=== PATIENT | female | born 1995 | race Caucasian/White ===

== ENCOUNTER 2016-12-15 21:57 | Emergency (ER) | payer MEDICAID ==
--- NOTE | 2016-12-15 22:26 | EDPHY ---
H & P Stated Complaint: ABD PAIN NAUSEA NO VOMITING, FEELING OFF, FEVERISH Time Seen by Provider: 12/15/16 22:05 HPI/ROS: Chief Complaint: Vaginal discharge, dizziness, feverish HPI: 21-year-old her presenting with some mild left-sided abdominal pain , a greenish vaginal discharge for the last 2 weeks. Has also had some intermittent light dizziness for the last 2 weeks and mild headache. Tonight she felt hot. Pain at worst is about a 2 or 3/10. Is not worsened by ambulation or bumpy car rides. Has had some moderate greenish to greenish vaginal discharge which is similar to prior episodes of bacterial vaginosis. Last menstrual period was 3 weeks ago was normal. Does not believe she is . Does not have a history of sexually transmitted diseases but has had a history of bacterial vaginosis. Sees a sexually active with 1 partner. Some nausea no vomiting. ROS: 10 point Review of Systems is negative except as noted in the HPI. PMH: General anxiety disorder, depression, exercise-induced asthma, chronic sinus disease Medications: Prozac, Wellbutrin, albuterol, Flonase Allergies: Celexa Social History: No smoking, occasional alcohol, occasional marijuana Family History: Father has hypertension hyperlipidemia, mother has hypertension Physical Exam: Gen: Awake, Alert, No Distress HEENT: Nose: no rhinorrhea Eyes: PERRLA, EOMI Mouth: Moist mucosa Neck: Supple, no JVD Chest: nontender, lungs clear to auscultation Heart: S1, S2 normal, no murmur Abd: Soft, mild left upper greater than left lower quadrant tenderness, no adnexal tenderness, no midline pelvic tenderness, no guarding Back: no CVA tenderness, no midline tenderness Ext: no edema, non-tender Skin: no rash Neuro: CN II-XII intact, Sensation grossly intact, Strength 5/5 in bilateral upper and lower extremities - Personal History LMP (Females 10-55): 22-28 Days Ago Current Tetanus/Diphtheria Vaccine: Yes Current Tetanus Diphtheria and Acellular Pertussis (TDAP): Yes Tetanus Vaccine Date: < 10 years - Medical/Surgical History Hx Asthma: Yes Hx Chronic Respiratory Disease: No Hx Diabetes: No Hx Cardiac Disease: No Hx Renal Disease: No Hx Cirrhosis: No Hx Alcoholism: No Hx HIV/AIDS: No Hx Splenectomy or Spleen Trauma: No Other PMH: medical: anxiety, depression, chronic rhinitis, asthma. surgery: appendectomy, wisdom teeth extraction - Social History Smoking Status: Never smoked Constitutional: Initial Vital Signs Temperature (C) 37.1 C 12/15/16 22:00 Heart Rate 89 12/15/16 22:00 Respiratory Rate 18 12/15/16 22:00 Blood Pressure 112/88 H 12/15/16 22:00 O2 Sat (%) 98 12/15/16 22:00 O2 Delivery Mode Room Air Allergies/Adverse Reactions: citalopram hydrobromide [From Celexa] Allergy (Verified 12/15/16 22:03) Home Medications: Medication Instructions Recorded Flonase Unk Dose+ 01/31/14 Albuterol 02/05/16 Wellbutrin Sr 02/05/16 Fluoxetine HCl [Prozac 40 mg] 20 mg PO 12/15/16 metroNIDAZOLE [Flagyl 500 mg (*)] 500 mg PO BID #14 tab 12/15/16 Medical Decision Making ED Course/Re-evaluation: Urinalysis and urine preg are negative. STD testing is not back. Symptoms are consistent with bacterial vaginosis. She has a benign abdominal exam at this time. No clinical findings suggestive of PID. Will discharge with Flagyl, she will call back for her STD results in 2 days if she is not here prior to that. - Data Points Laboratory Results: 12/15/16 12/15/16 12/15/16 22:29 22:29 22:29 Urine Color YELLOW Urine Appearance CLEAR Urine pH 5.0 (5.0-7.5) Ur Specific [place] 1.010 (1.002-1.030) Urine Protein NEGATIVE (NEGATIVE) Urine Ketones NEGATIVE (NEGATIVE) Urine Blood NEGATIVE (NEGATIVE) Urine Nitrate NEGATIVE (NEGATIVE) Urine Bilirubin NEGATIVE (NEGATIVE) Urine Urobilinogen NEGATIVE EU EU (0.2-1.0) Ur Leukocyte Esterase NEGATIVE (NEGATIVE) Urine Glucose NEGATIVE (NEGATIVE) Urine Test NEGATIVE C.trachomatis RNA (TMA) Pending N.gonorrhoeae RNA (TMA) Pending Departure - Departure Disposition: Home, Routine, Self-Care Clinical Impression: Bacterial vaginosis Condition: Good Instructions: Bacterial Vaginosis (ED), Metronidazole (By mouth) Additional Instructions: Please take your full course of antibiotics. Call the hospital in 2 days for your STD test results. Follow up with primary care physician in 3-4 days for re-evaluation. Return emergency depart for increasing pain, fevers, chills, nausea, vomiting, or any other concerns. Referrals: Blossom Martinez MD [Primary Care Provider] - As per Instructions Prescriptions: metroNIDAZOLE [Flagyl 500 mg (*)] 500 mg PO BID #14 tab
[2016-12-15 22:40] LABS: COLOR YELLOW; LEUKOCYTE ESTERASE,URINE NEGATIVE (NEGATIVE); NITRITE,URINE NEGATIVE (NEGATIVE)
[2016-12-15] MEDS ORDERED: metroNIDAZOLE 500 MG TAB PO ONE (23:06)
[2016-12-15 23:14] VITALS: BP 113/76; PULSE 79; RESP 16; TEMP 98.1; O2SAT 97
[2016-12-16 14:25] LABS: CHLAMYDIA AMPLIFICATION GENPRB NEGATIVE (NEGATIVE)
== END 2016-12-15 23:34 | disposition home or self-care (01) ==
DX: N76.0 Acute vaginitis (principal); J45.909 Unspecified asthma, uncomplicated

== ENCOUNTER 2016-12-18 17:30 | Emergency (ER) | payer MEDICAID ==
[2016-12-18 17:38] VITALS: TEMP 98.2
--- NOTE | 2016-12-18 17:41 | EDPHY ---
H & P Stated Complaint: rx flagyl for BV/having ? side effects/trouble thinking/ shaky/nause Time Seen by Provider: 12/18/16 17:40 - Personal History LMP (Females 10-55): 15-21 Days Ago Current Tetanus/Diphtheria Vaccine: Yes Tetanus Vaccine Date: < 10 years - Medical/Surgical History Hx Asthma: Yes Hx Chronic Respiratory Disease: No Hx Diabetes: No Hx Cardiac Disease: No Hx Renal Disease: No Hx Cirrhosis: No Hx Alcoholism: No Hx HIV/AIDS: No Hx Splenectomy or Spleen Trauma: No Other PMH: medical: anxiety, depression, chronic rhinitis, asthma. surgery: appendectomy, wisdom teeth extraction - Social History Smoking Status: Never smoked Constitutional: Initial Vital Signs Temperature (C) 36.8 C 12/18/16 17:36 Heart Rate 79 12/18/16 17:36 Respiratory Rate 20 12/18/16 17:36 Blood Pressure 121/80 H 12/18/16 17:36 O2 Sat (%) 99 12/18/16 17:36 O2 Delivery Mode Room Air Allergies/Adverse Reactions: citalopram hydrobromide [From [employer]!] Allergy (Verified 12/18/16 17:34) Home Medications: Medication Instructions Recorded Flonase Unk Dose+ 01/31/14 Albuterol 02/05/16 Wellbutrin Sr 02/05/16 Fluoxetine HCl [Prozac 40 mg] 20 mg PO 12/15/16 metroNIDAZOLE [Flagyl 500 mg (*)] 500 mg PO BID #14 tab 12/15/16 Medical Decision Making ED Course/Re-evaluation: CHIEF COMPLAINT: Abdominal pain, dizziness. HISTORY OF PRESENT ILLNESS: The patient is a 21-year-old female who presents with dizziness and abdominal pain. These symptoms have been present for the past few days but worsened significantly after she was placed on Flagyl on . She admits associated nausea. She denies vomiting, diarrhea, or other complaints at this time. Her BV symptoms are improving. REVIEW OF SYSTEMS: A 10 point review of systems was performed and is negative with the exception of the elements mentioned in the history of present illness. PHYSICAL EXAM: HR, BP, O2 Sat, RR. Temp noted General Appearance: Alert, well hydrated, appropriate, and non-toxic appearing. Head: Atraumatic without scalp tenderness or obvious injury Eyes: Pupils equal, round, reactive to light and accommodation, EOMI, no trauma , no injection. Ears: Clear bilaterally, no perforation, normal landmarks Nose: Atraumatic, no rhinorrhea, clear. Throat: There is no erythema or exudates, no lesions, normal tonsils, mucus membranes moist. Neck: Supple, 2+ carotid upstroke, nontender, no lymphadenopathy. Respiratory: No retractions, no distress, no wheezes, and no accessory muscle use. Lungs are clear to auscultation bilaterally. Cardiovascular: Regular rate and rhythm, no murmurs, rubs, or gallops. Bilateral carotid, radial, dorsalis pedis, and posterior tibial pulses intact. Good capillary refill all extremities. Gastrointestinal: Abdomen is soft, nontender, non-distended, no masses, no rebound, no guarding, no peritoneal signs. Musculoskeletal: Normal active ROM of all extremities, atraumatic. Neurological: Alert, appropriate, and interactive. The patient has normal DTRs and non-focal cranial nerves, motor, sensory, and cerebellar exam. Skin: No rashes, good turgor, no nodules on palpation. Past medical history: BV, depression, asthma. Past surgical history: Appendectomy. Family history: N/A. Social history: Does not abuse alcohol or drugs. DIFFERENTIAL DIAGNOSIS: The differential diagnosis for the patient's abdominal pain included but was not limited to ovarian cyst, pelvic inflammatory disease, ovarian torsion, urinary tract infection, ectopic , cholecystitis, and appendicitis. MEDICAL DECISION MAKIN-year-old female presents with abdominal pain and dizziness for the past few days. The symptoms worsened when she was placed on Flagyl. On exam she has a benign abdomen and she has had her appendix taken out already. An IV was established and labs ordered. I feel she likely had a gastritis that was worsened with her Flagyl prescription. GI cocktail ordered. I reviewed the patient's laboratory studies. They are negative for acute abnormalities. I will place her on 300mg Clindamycin BID for 7 days. - Data Points Laboratory Results: Laboratory Results 12/18/16 18:29 12/18/16 18:29 12/18/16 12/18/16 12/18/16 18:29 18: 18: WBC 6.15 10^3/uL 10^3/uL (3.80-9.50) RBC 4.79 10^6/uL 10^6/uL (4.18-5.33) Hgb 14.5 g/dL g/dL (12.6-16.3) Hct 41.9 % % (38.0-47.0) MCV 87.5 fL fL (81.5-99.8) MCH 30.3 pg pg (27.9-34.1) MCHC 34.6 g/dL g/dL (32.4-36.7) RDW 11.3 % L % (11.5-15.2) Plt Count 122 10^3/uL L 10^3/uL (150-400) MPV 10.5 fL fL (8.7-11.7) Neut % (Auto) 62.8 % % (39.3-74.2) Lymph % (Auto) 28.5 % % (15.0-45.0) [place] % (Auto) 6.8 % % (4.5-13.0) Eos % (Auto) 1.1 % % (0.6-7.6) Baso % (Auto) 0.3 % % (0.3-1.7) Nucleat RBC Rel Count 0.0 % % (0.0-0.2) Absolute Neuts (auto) 3.86 10^3/uL 10^3/uL (1.70-6.50) Absolute Lymphs (auto) 1.75 10^3/uL 10^3/uL (1.00-3.00) Absolute Monos (auto) 0.42 10^3/uL 10^3/uL (0.30-0.80) Absolute Eos (auto) 0.07 10^3/uL 10^3/uL (0.03-0.40) Absolute Basos (auto) 0.02 10^3/uL 10^3/uL (0.02-0.10) Absolute Nucleated RBC 0.00 10^3/uL 10^3/uL (0-0.01) Immature Gran % 0.5 % % (0.0-1.1) Immature Gran # 0.03 10^3/uL 10^3/uL (0.00-0.10) Sodium 140 mEq/L mEq/L (134-144) Potassium 3.8 mEq/L mEq/L (3.5-5.2) Chloride 105 mEq/L mEq/L (97-110) Carbon Dioxide 21 mEq/l L mEq/l (22-31) Anion Gap 14 mEq/L mEq/L (8-16) BUN 12 mg/dL mg/dL (7-23) Creatinine 0.7 mg/dL mg/dL (0.6-1.0) Estimated GFR > 60 Glucose 82 mg/dL mg/dL (70-100) Calcium 9.7 mg/dL mg/dL (8.5-10.4) Total Bilirubin 0.4 mg/dL mg/dL (0.1-1.4) Conjugated Bilirubin 0.2 mg/dL mg/dL (0.0-0.5) Unconjugated Bilirubin 0.2 mg/dL mg/dL (0.0-1.1) AST 21 IU/L IU/L (14-46) ALT 33 IU/L IU/L (9-52) Alkaline Phosphatase 41 IU/L IU/L (38-126) Total Protein 6.7 g/dL g/dL (6.3-8.2) Albumin 4.4 g/dL g/dL (3.5-5.0) Lipase 151.0 IU/L IU/L (23-300) Beta HCG, Qual NEGATIVE Medications Given: Discontinued Medications Al Hydroxide/Mg Hydroxide (Maalox Susp) 30 ml PO ONCE ONE Stop: 12/18/16 18:04 Last Admin: 12/18/16 18:34 Dose: 30 ml Hyoscyamine Sulfate (Levsin, Hyomax-Sl) 0.25 mg PO ONCE ONE Stop: 12/18/16 18:04 Last Admin: 12/18/16 18:35 Dose: 0.25 mg Sodium Chloride (Ns) 1,000 mls @ 0 mls/hr IV EDNOW ONE; Wide Open PRN Reason: Protocol Stop: 12/18/16 18:04 Last Admin: 12/18/16 18:00 Dose: 1,000 mls Lidocaine (Lidocaine 2% Viscous) 15 ml PO ONCE ONE Stop: 12/18/16 18:04 Last Admin: 12/18/16 18:35 Dose: 15 ml Ondansetron HCl (Zofran) 4 mg IVP EDNOW ONE Stop: 12/18/16 18:04 Last Admin: 12/18/16 18:35 Dose: 4 mg Departure - Departure Disposition: Home, Routine, Self-Care Clinical Impression: Bacterial vaginosis Gastritis Qualifiers: Gastritis type: unspecified gastritis Chronicity: acute Gastritis bleeding: presence of bleeding unspecified Qualified Code(s): K29.00 - Acute gastritis without bleeding Condition: Good Instructions: Gastritis (ED), Bacterial Vaginosis (ED) Additional Instructions: Discontinue use of the Flagyl. Take Clindamycin as prescribed. Follow up with your primary care provider for reevaluation of ongoing symptoms. Return for any serious worsening of condition. Referrals: Blossom Martinez MD [Primary Care Provider] - As per Instructions Report Scribed for: Zelalem Cat Report Scribed by: Sonny Castelan Date of Report: 12/18/16 Time of Report: 17:42
[2016-12-18] MEDS ORDERED: ONDANSETRON 4 MG/2 ML VIAL IVP ONE (18:03)
[2016-12-18] MEDS ORDERED: HYOSCYAMINE SULFATE 0.125 MG TAB PO ONE (18:03)
[2016-12-18] MEDS ORDERED: NS 1,000 ML IV ONE (18:03)
[2016-12-18] MEDS ORDERED: MAG HYDROX/AL HYDROX/SIMETH 30 ML UDCUP PO ONE (18:03)
[2016-12-18] MEDS ORDERED: LIDOCAINE 2% VISCOUS 15 ML UDCUP PO ONE (18:03)
[2016-12-18 18:34] LABS: % IMMATURE GRANULYOCYTES 0.5 % (0.0-1.1); ABSOLUTE IMMATURE GRANULOCYTES 0.03 10^3/uL (0.00-0.10); ADD DIFF? NO; ADD MORPH? NO; ADD SCAN? NO; ATYPICAL LYMPHOCYTE FLAG 30 (0-99); FRAGMENT RBC FLAG 0 (0-99); HEMATOCRIT 41.9 % (38.0-47.0); HEMOGLOBIN 14.5 g/dL (12.6-16.3); LEFT SHIFT FLG 0 (0-99); LIPEMIA HEMOLYSIS FLAG 90 (0-99); MEAN CELL HEMOGLOBIN 30.3 pg (27.9-34.1); MEAN CELL HEMOGLOBIN CONCENTR. 34.6 g/dL (32.4-36.7); MEAN CELL VOLUME 87.5 fL (81.5-99.8); MEAN PLATELET VOLUME 10.5 fL (8.7-11.7); PLATELET CLUMPS FLAG 20 (0-99); PLATELET COUNT 122 10^3/uL (150-400); RED BLOOD CELL COUNT 4.79 10^6/uL (4.18-5.33); RED CELL DISTRIBUTION WIDTH 11.3 % (11.5-15.2)
[2016-12-18 18:48] LABS: ALANINE AMINOTRANSFERASE 33 IU/L (9-52); ALBUMIN 4.4 g/dL (3.5-5.0); ALKALINE PHOSPHATASE 41 IU/L (38-126); ANION GAP 14 mEq/L (8-16); ASPARTATE AMINOTRANSFERASE 21 IU/L (14-46); BILIRUBIN,TOTAL 0.4 mg/dL (0.1-1.4); BILIRUBIN-CONJUGATED 0.2 mg/dL (0.0-0.5); BILIRUBIN-UNCONJUGATED 0.2 mg/dL (0.0-1.1); CALCIUM 9.7 mg/dL (8.5-10.4); CARBON DIOXIDE 21 mEq/l (22-31); CHLORIDE 105 mEq/L (97-110); CREATININE 0.7 mg/dL (0.6-1.0); GLOMERULAR FILTRATION RATE > 60; GLUCOSE 82 mg/dL (70-100); POTASSIUM 3.8 mEq/L (3.5-5.2); SODIUM 140 mEq/L (134-144); TOTAL PROTEIN 6.7 g/dL (6.3-8.2)
[2016-12-18 19:13] VITALS: BP 100/60; PULSE 70; RESP 18; O2SAT 98
== END 2016-12-18 19:13 | disposition home or self-care (01) ==
DX: K29.00 Acute gastritis without bleeding (principal); N76.0 Acute vaginitis; E86.9 Volume depletion, unspecified; J45.909 Unspecified asthma, uncomplicated
CPT/HCPCS: 96374; J2405

== ENCOUNTER 2016-12-31 22:46 | Inpatient (IN) | payer MEDICAID ==
[2016-12-31] MEDS ORDERED: ONDANSETRON 4 MG/2 ML VIAL IVP ONE (23:05)
[2016-12-31] MEDS ORDERED: NS 1,000 ML IV ONE ×2 (23:06→23:36)
[2016-12-31] MEDS ORDERED: KETOROLAC 15 MG/1 ML SDV IVP ONE (23:36)
[2016-12-31 23:41] LABS: % IMMATURE GRANULYOCYTES 0.6 % (0.0-1.1); ABSOLUTE IMMATURE GRANULOCYTES 0.09 10^3/uL (0.00-0.10); ADD DIFF? NO; ADD MORPH? NO; ADD SCAN? NO; ATYPICAL LYMPHOCYTE FLAG 0 (0-99); FRAGMENT RBC FLAG 0 (0-99); HEMATOCRIT 44.1 % (38.0-47.0); LEFT SHIFT FLG 10 (0-99); LIPEMIA HEMOLYSIS FLAG 90 (0-99); MEAN CELL HEMOGLOBIN 29.9 pg (27.9-34.1); MEAN CELL VOLUME 87.8 fL (81.5-99.8); MEAN PLATELET VOLUME 10.9 fL (8.7-11.7); PLATELET CLUMPS FLAG 10 (0-99); PLATELET COUNT 126 10^3/uL (150-400); RED BLOOD CELL COUNT 5.02 10^6/uL (4.18-5.33); RED CELL DISTRIBUTION WIDTH 11.3 % (11.5-15.2)
[2016-12-31 23:48] LABS: ALANINE AMINOTRANSFERASE 34 IU/L (9-52); ALBUMIN 4.6 g/dL (3.5-5.0); ALKALINE PHOSPHATASE 49 IU/L (38-126); ANION GAP 15 mEq/L (8-16); ASPARTATE AMINOTRANSFERASE 25 IU/L (14-46); BILIRUBIN-CONJUGATED 0.2 mg/dL (0.0-0.5); BILIRUBIN-UNCONJUGATED 0.8 mg/dL (0.0-1.1); CALCIUM 9.9 mg/dL (8.5-10.4); CARBON DIOXIDE 21 mEq/l (22-31); CHLORIDE 103 mEq/L (97-110); CREATININE 0.9 mg/dL (0.6-1.0); GLOMERULAR FILTRATION RATE > 60; GLUCOSE 137 mg/dL (70-100); POTASSIUM 3.5 mEq/L (3.5-5.2); SODIUM 139 mEq/L (134-144); TOTAL PROTEIN 7.1 g/dL (6.3-8.2)
--- NOTE | 2017-01-01 00:12 | EDPHY ---
H & P Stated Complaint: Abd Pain, N/V/D, Fever Time Seen by Provider: 12/31/16 23:18 HPI/ROS: Chief Complaint: Abdominal pain, nausea, diarrhea HPI: 21-year-old who is seen by me on the of last month with symptoms consistent with bacterial vaginosis. Had negative gonorrhea and Chlamydia at that time. Patient was initially started on Flagyl with the tolerate this and was switched to clindamycin. She completed her course of antibiotics. Patient states for the last 3 days she has been having worsening dark diarrhea 4 to 5 times a day. Some abdominal cramping. Pain in her back. Some nausea and some vomiting. Some subjective fevers and chills. Patient states that her vaginal discharge has resolved. She has a history of appendicitis status post appendectomy in the past. She is sexually active with a single partner. ROS: 10 point Review of Systems is negative except as noted in the HPI. PMH: Appendectomy, bacterial vaginosis Social History: No smoking, occasional alcohol, no recreational drug use Family History: non-contributory Physical Exam: Gen: Awake, Alert, No Distress HEENT: Nose: no rhinorrhea Eyes: PERRLA, EOMI Mouth: Moist mucosa Neck: Supple, no JVD Chest: nontender, lungs clear to auscultation Heart: S1, S2 normal, no murmur Abd: Soft, moderate left lower quadrant tenderness to palpation, no guarding Back: no CVA tenderness, no midline tenderness Ext: no edema, non-tender Skin: no rash Neuro: CN II-XII intact, Sensation grossly intact, Strength 5/5 in bilateral upper and lower extremities - Personal History LMP (Females 10-55): 1-7 Days Ago Current Tetanus/Diphtheria Vaccine: Yes Current Tetanus Diphtheria and Acellular Pertussis (TDAP): Yes Tetanus Vaccine Date: < 10 years - Medical/Surgical History Hx Asthma: Yes Hx Chronic Respiratory Disease: No Hx Diabetes: No Hx Cardiac Disease: No Hx Renal Disease: No Hx Cirrhosis: No Hx Alcoholism: No Hx HIV/AIDS: No Hx Splenectomy or Spleen Trauma: No Other PMH: medical: anxiety, depression, chronic rhinitis, asthma. surgery: appendectomy, wisdom teeth extraction - Social History Smoking Status: Never smoked Constitutional: Initial Vital Signs Temperature (C) 39.1 C H 12/31/16 22:51 Heart Rate 130 H 08/11/17 22:51 Respiratory Rate 20 12/31/16 22:51 Blood Pressure 95/58 L 12/31/16 22:51 O2 Sat (%) 97 12/31/16 22:51 O2 Delivery Mode Room Air Allergies/Adverse Reactions: citalopram hydrobromide [From Celexa] Allergy (Verified 12/18/16 17:34) metronidazole [From Flagyl] Allergy (Verified 12/31/16 22:54) Home Medications: Medication Instructions Recorded Flonase Unk Dose+ 01/31/14 Albuterol 02/05/16 Wellbutrin Sr 02/05/16 Zoloft 25mg (*) 12/31/16 Medical Decision Making ED Course/Re-evaluation: Patient is feeling improved after fluids and Toradol. Fever is resolved. Patient has no abdominal pain. Minimal left lower quadrant tenderness. Patient is currently complaining mostly of a mild headache her mouth being dry and dry hands. She is asking for fluids. 0300 patient is feeling improved. Abdomen is soft and benign. Patient does not want any further evaluation at this time. Stool tests are pending to evaluate for C diff. She has had no diarrhea here. Patient remains tachycardic and mildly hypotensive. Patient has had 3 L of fluid IV. Is not producing any urine yet. Lactate sent. CT scan of the abdomen pelvis has been ordered. Lactate is normal at 1.3. Patient is feeling well but remains tachycardic. CT scan of the abdomen pelvis shows wall thickening of the descending colon, no diverticuli, consistent with diffuse colitis. Patient's blood pressures improved. Remains mildly tachycardic. Is produced very concentrated urine here. Urinalysis shows a high specific gravity otherwise negative. Patient is getting a 5th L of normal saline. She is otherwise soft and benign abdomen is otherwise well-appearing. No current complaints. - Data Points Laboratory Results: Laboratory Results 12/31/16 23:15 12/31/16 23:15 01/01/17 01/01/17 12/31/16 04:00 03:50 23:15 WBC RBC Hgb Hct MCV MCH MCHC RDW Plt Count MPV Neut % (Auto) Lymph % (Auto) [place] % (Auto) Eos % (Auto) Baso % (Auto) Nucleat RBC Rel Count Absolute Neuts (auto) Absolute Lymphs (auto) Absolute Monos (auto) Absolute Eos (auto) Absolute Basos (auto) Absolute Nucleated RBC Immature Gran % Immature Gran # VBG Lactic Acid 1.3 mmol/L mmol/L (0.7-2.1) Sodium Potassium Chloride Carbon Dioxide Anion Gap BUN Creatinine Estimated GFR Glucose Calcium Total Bilirubin Conjugated Bilirubin Unconjugated Bilirubin AST ALT Alkaline Phosphatase Total Protein Albumin Lipase Beta HCG, Qual NEGATIVE Urine Color YELLOW Urine Appearance CLEAR Urine pH 5.0 (5.0-7.5) Ur Specific [place] 1.035 H (1.002-1.030) Urine Protein NEGATIVE (NEGATIVE) Urine Ketones NEGATIVE (NEGATIVE) Urine Blood NEGATIVE (NEGATIVE) Urine Nitrate NEGATIVE (NEGATIVE) Urine Bilirubin NEGATIVE (NEGATIVE) Urine Urobilinogen NEGATIVE EU EU (0.2-1.0) Ur Leukocyte Esterase NEGATIVE (NEGATIVE) Urine Glucose NEGATIVE (NEGATIVE) 12/31/16 12/31/16 23:15 23:15 WBC 15.08 10^3/uL H 10^3/uL (3.80-9.50) RBC 5.02 10^6/uL 10^6/uL (4.18-5.33) Hgb 15.0 g/dL g/dL (12.6-16.3) Hct 44.1 % % (38.0-47.0) MCV 87.8 fL fL (81.5-99.8) MCH 29.9 pg pg (27.9-34.1) MCHC 34.0 g/dL g/dL (32.4-36.7) RDW 11.3 % L % (11.5-15.2) Plt Count 126 10^3/uL L 10^3/uL (150-400) MPV 10.9 fL fL (8.7-11.7) Neut % (Auto) 89.6 % H % (39.3-74.2) Lymph % (Auto) 3.4 % L % (15.0-45.0) [place] % (Auto) 6.2 % % (4.5-13.0) Eos % (Auto) 0.0 % L % (0.6-7.6) Baso % (Auto) 0.2 % L % (0.3-1.7) Nucleat RBC Rel Count 0.0 % % (0.0-0.2) Absolute Neuts (auto) 13.51 10^3/uL H 10^3/uL (1.70-6.50) Absolute Lymphs (auto) 0.51 10^3/uL L 10^3/uL (1.00-3.00) Absolute Monos (auto) 0.94 10^3/uL H 10^3/uL (0.30-0.80) Absolute Eos (auto) 0.00 10^3/uL L 10^3/uL (0.03-0.40) Absolute Basos (auto) 0.03 10^3/uL 10^3/uL (0.02-0.10) Absolute Nucleated RBC 0.00 10^3/uL 10^3/uL (0-0.01) Immature Gran % 0.6 % % (0.0-1.1) Immature Gran # 0.09 10^3/uL 10^3/uL (0.00-0.10) VBG Lactic Acid Sodium 139 mEq/L mEq/L (134-144) Potassium 3.5 mEq/L mEq/L (3.5-5.2) Chloride 103 mEq/L mEq/L (97-110) Carbon Dioxide 21 mEq/l L mEq/l (22-31) Anion Gap 15 mEq/L mEq/L (8-16) BUN 10 mg/dL mg/dL (7-23) Creatinine 0.9 mg/dL mg/dL (0.6-1.0) Estimated GFR > 60 Glucose 137 mg/dL H mg/dL (70-100) Calcium 9.9 mg/dL mg/dL (8.5-10.4) Total Bilirubin 1.0 mg/dL mg/dL (0.1-1.4) Conjugated Bilirubin 0.2 mg/dL mg/dL (0.0-0.5) Unconjugated Bilirubin 0.8 mg/dL mg/dL (0.0-1.1) AST 25 IU/L IU/L (14-46) ALT 34 IU/L IU/L (9-52) Alkaline Phosphatase 49 IU/L IU/L (38-126) Total Protein 7.1 g/dL g/dL (6.3-8.2) Albumin 4.6 g/dL g/dL (3.5-5.0) Lipase 116.0 IU/L IU/L (23-300) Beta HCG, Qual Urine Color Urine Appearance Urine pH Ur Specific [place] Urine Protein Urine Ketones Urine Blood Urine Nitrate Urine Bilirubin Urine Urobilinogen Ur Leukocyte Esterase Urine Glucose Medications Given: Discontinued Medications Acetaminophen (Tylenol) 1,000 mg PO EDNOW ONE Stop: 01/01/17 01:04 Last Admin: 01/01/17 01:16 Dose: 1,000 mg Acetaminophen (Tylenol) 1,000 mg PO EDNOW ONE Stop: 01/01/17 05:37 Last Admin: 01/01/17 05:38 Dose: 1,000 mg Sodium Chloride (Ns) 1,000 mls @ 0 mls/hr IV EDNOW ONE; Wide Open PRN Reason: Protocol Stop: 12/31/16 23:07 Last Admin: 12/31/16 23:16 Dose: 1,000 mls Sodium Chloride (Ns) 1,000 mls @ 0 mls/hr IV ONCE ONE PRN Reason: Wide Open Stop: 12/31/16 23:37 Last Admin: 12/31/16 23:49 Dose: 1,000 mls Sodium Chloride (Ns) 1,000 mls @ 0 mls/hr IV ONCE ONE; Wide Open PRN Reason: Protocol Stop: 01/01/17 01:05 Last Admin: 01/01/17 01:16 Dose: 1,000 mls Sodium Chloride (Ns) 1,000 mls @ 0 mls/hr IV ONCE ONE PRN Reason: Wide Open Stop: 01/01/17 03:41 Last Admin: 01/01/17 04:15 Dose: 1,000 mls Sodium Chloride (Ns) 1,000 mls @ 0 mls/hr IV ONCE ONE; Wide Open PRN Reason: Protocol Stop: 01/01/17 05:37 Last Admin: 01/01/17 05:37 Dose: 1,000 mls Ketorolac Tromethamine (Toradol) 15 mg IVP EDNOW ONE Stop: 12/31/16 23:37 Last Admin: 12/31/16 23:49 Dose: 15 mg Ondansetron HCl (Zofran) 4 mg IVP EDNOW ONE Stop: 12/31/16 23:06 Last Admin: 12/31/16 23:16 Dose: 4 mg Ondansetron HCl (Zofran) 4 mg IVP EDNOW ONE Stop: 01/01/17 04:15 Last Admin: 01/01/17 04:15 Dose: 4 mg Departure - Departure Disposition: Home, Routine, Self-Care Clinical Impression: Abdominal pain, Fever Condition: Good Instructions: Fever in Adults (ED) Additional Instructions: Call later today for the results of your stool cultures. Return emergency depart for increasing fever or chills, abdominal pain, nausea, vomiting, or any other concerns. Follow up with primary care physician in 2-3 days for further evaluation. Referrals: Blossom Martinez MD [Primary Care Provider] - As per Instructions
[2017-01-01] MEDS ORDERED: ACETAMINOPHEN 500 MG TAB ONE ×2 (01:01→05:32)
[2017-01-01] MEDS ORDERED: ACETAMINOPHEN 500 MG TAB PO ONE ×2 (01:03→05:36)
[2017-01-01] MEDS ORDERED: NS 1,000 ML IV ONE ×4 (01:04→16:18)
[2017-01-01] MEDS ORDERED: ONDANSETRON 4 MG/2 ML VIAL ONE (04:08)
[2017-01-01] MEDS ORDERED: ONDANSETRON 4 MG/2 ML VIAL IVP ONE (04:14)
[2017-01-01] MEDS ORDERED: IOPAMIDOL (ISOVUE-300) 100 ML BTL ONE (04:14)
[2017-01-01 04:52] LABS: COLOR YELLOW; LEUKOCYTE ESTERASE,URINE NEGATIVE (NEGATIVE); NITRITE,URINE NEGATIVE (NEGATIVE)
[2017-01-01] MEDS ORDERED: VANCOMYCIN 125 MG/2.5 ML UDL PO SCH (06:08)
[2017-01-01] MEDS ORDERED: PROMETHAZINE HCL 25 MG/ML INJ IVP PRN (06:30)
[2017-01-01] MEDS: ONDANSETRON 4 MG/2 ML VIAL IVP PRN ×2 (06:47→21:41)
[2017-01-01] MEDS: HYDROmorphONE/DILAUDID 1 MG/ML SYR IVP PRN ×3 (06:47→14:37)
[2017-01-01] MEDS ORDERED: ALBUTEROL 3 ML DEYVIAL IH PRN (06:53)
--- NOTE | 2017-01-01 07:38 | GHP ---
[f rep st] HISTORY AND PHYSICAL DATE OF ADMISSION: 01/01/2017 CHIEF COMPLAINT: Abdominal pain, fever and diarrhea. HISTORY OF PRESENT ILLNESS: The patient is a 21-year-old female who was recently treated for bacterial vaginosis. She presents to the emergency department with abdominal pain, diarrhea and fever. She was initially seen in the emergency department on December 15, complaining of vaginal discharge. She was diagnosed with bacterial vaginosis and treated with Flagyl. She returned to the emergency department several days later, reporting side effects from the Flagyl. At that time, she was changed to oral clindamycin. After completing the course of clindamycin, her vaginal discharge symptoms completely resolved and she actually felt well for a couple of days. She then began having diarrhea , which has increased in frequency. The day prior to arrival, she reports more than 6 stools per day. She describes these as loose and somewhat watery, with foul smell. She denies any hematochezia or melenic stool. She has had no nausea or vomiting. She has had very poor oral intake over the past 24 hours due to abdominal pain. Abdominal pain is left-sided and crampy in nature. She denies chest pain, shortness of breath, cough or other respiratory symptoms. There has been no recent travel or suspicious food exposures. Upon arrival to the emergency department, her temperature was 39.1, blood pressure was 90s over 50s. After several L of normal saline, she dropped her blood pressure to 79/35. She has been persistently tachycardic. A CT scan revealed diffuse colitis. Given her unstable vital signs, she is admitted to the hospital for further management. PAST MEDICAL HISTORY: History of recurrent bacterial vaginosis, asthma, anxiety and depression. PAST SURGICAL HISTORY: Appendectomy in February 2013, wisdom teeth extraction. MEDICATIONS: Please see [facility] for complete updated outpatient medication list. FAMILY HISTORY: Reviewed and noncontributory. SOCIAL HISTORY: The patient lives independently in [place]. Her boyfriend is present with her at the bedside. The patient is a nonsmoker. REVIEW OF SYSTEMS: A 10-point review of systems was performed and is negative except as per HPI. OBJECTIVE: VITAL SIGNS: On arrival to the emergency department, temperature 39.1, blood pressure 95/58, heart rate 130, respiratory rate 20, she is 97% on room air. Current vital signs, temperature is 37.7, blood pressure 105/51, heart rate 120, respiratory rate 20, and she is 94% on room air. GENERAL: The patient is awake, alert, oriented, in no acute distress. HEENT: Head is atraumatic, normocephalic. Pupils equal, round, react to light. Extraocular muscles intact. Oropharynx is clear. Mucous membranes are moist. NECK: Supple. There is no JVD. HEART: Tachycardic, without murmur. LUNGS: Clear to auscultation bilaterally. ABDOMEN: Soft, nondistended. She has diffuse bilateral lower quadrant tenderness to palpation without rebound, rigidity or guarding. There are hypoactive bowel tones. EXTREMITIES: Without cyanosis, clubbing, or edema. NEUROLOGIC: Grossly nonfocal. LABORATORY DATA: CBC reveals a white blood cell count of 15,000, hemoglobin is 15, platelets 126, 89.6% neutrophils, lactic acid is 1.3. Complete metabolic panel remarkable for CO2 of 21, glucose 137, creatinine normal at 0.9, lipase is normal. Beta hCG is negative. Urinalysis is negative for infection, though showed a specific gravity of 1.035. CT abdomen and pelvis showed colon wall thickening diffusely throughout the descending and sigmoid colon, consistent with colitis. ASSESSMENT/PLAN: The patient is a 21-year-old female, who was recently treated for bacterial vaginosis with Flagyl and clindamycin, and now presents to the hospital with fever, abdominal pain, and diarrhea. 1. Sepsis, suspected source is Clostridium difficile colitis. She presented with fever, tachycardia and leukocytosis. Though initially normotensive, she progressed to hypotension with her SBP dropping to the 70's after several liters of NS, meeting criteria for septic shock. At the time of my evaluation, her current blood pressure is 105 systolic after receiving 4.5 L of normal saline in the emergency department. She is currently afebrile. A GI pathogen panel is pending. Will draw blood cultures and initiate empiric oral vancomycin treatment for presumed C difficile. Her history is most consistent with C diff, having taken clindamycin prior to the onset of symptoms, with imaging consistent with colitis. We will give her a clear liquid diet. Continue IV fluids, as she has had poor urine output and was quite volume depleted on arrival. Overall, her hemodynamics have improved. Continue close monitoring in the step down unit. 2. Depression and anxiety. We will continue her outpatient medications once her medication reconciliation is completed. 3. Asthma. This is stable without any evidence of acute exacerbation. We will provide p.r.n. albuterol nebs. 4. Code status. Patient is full code. 5. Deep venous thrombosis prophylaxis. Patient is low risk. We will place SCDs and recommend frequent ambulation. 6. Disposition. Patient is admitted to inpatient status. Will likely require greater than 48 hours hospitalization for ongoing management of her sepsis likely secondary to sepsis and associated colitis. /[id number]/MODL MTDD
[2017-01-01 08:13] LABS: INR 1.55 (0.83-1.16); PROTIME(PATIENT) 18.6 SEC (12.0-15.0)
[2017-01-01 08:14] LABS: APTT 32.6 SEC (23.0-38.0)
[2017-01-01 08:17] LABS: BILIRUBIN,TOTAL 0.6 mg/dL (0.1-1.4)
[2017-01-01 08:37] LABS: PROCALCITONIN 2.11 ng/mL (0.02-0.10)
[2017-01-01] MEDS ORDERED: FLUTICASONE NASAL 120 SPRAYS/16 GM MDI EACHNARE PRN (10:45)
[2017-01-01] MEDS ORDERED: ALBUTEROL 200 PUFFS/18 GM MDI IH PRN (10:45)
--- NOTE | 2017-01-01 11:13 | HOSPPROG ---
Hospitalist Progress Note Assessment/Plan: DIAGNOSES: -Acute severe sepsis -C difficile colitis Patient does have acute C difficile colitis. Is concerned she remains tachycardic at this stage of things. Try and correct that more. On her abdominal exam right now I do not think there is dramatic distention but she does have some colonic distension. She is still having bowel sounds and bowel movement. She is not vomiting. This is a fairly severe infection and she is at some risk of complications and will need close watching so will continue in ICU at this time. PLANS: -At this time will increase aggressiveness of fluid resuscitation, will use NICOM to guide this at present -Will increase her dose of vancomycin 250 mg 4 times daily -Will not add Flagyl at this time as he had so much side effects but if she does not improve fairly quickly may need to add some IV Flagyl -I have ordered a recheck chemistry panel to look at acid-base status and renal function at this time will continue follow that closely -Contact isolation -DVT prophylaxis SUBJECTIVE: still having a lot of abdominal cramping and watery stools Feels lightheaded and dehydrated No shortness of breath No fever symptoms Last bowel movement 1 hour ago watery OBJECTIVE Vitals reviewed: remains tachycardic 119 at this point, has a good mean arterial pressure, still febrile Van Loader, my review: sinus tachycardia Exam: alert oriented skin warm dry color ok no jaundice or mottling Good distal capillary refill resps not labored lungs clear BSs heart regular abd soft mildly distended, some diffuse tenderness without guarding or rebound , bowel sounds present limbs warm, no edema iv site ok laboratory data: Her C diff test is positive There is not at this point repeat chemistry or CBC Cultures of Blood are negative so far I reviewed her CT abdomen images and they do show diffuse colonic thickening Objective: Vital Signs Temp Pulse Resp BP Pulse Ox 37.4 C 115 H 24 H 94/47 L 95 01/01/17 08:00 01/01/17 08:00 01/01/17 08:00 01/01/17 08:00 01/01/17 08:00 PT 18.6 SEC (12.0-15.0) H 01/01/17 07:45 INR 1.55 (0.83-1.16) H 01/01/17 07:45 ICD10 Worksheet Patient Problems: Problems Problem Status Onset Abdominal pain Acute Fever Acute Appendicitis Acute
[2017-01-01] MEDS: SERTRALINE HCL 50 MG TAB PO SCH (11:38)
[2017-01-01] MEDS: VANCOMYCIN 125 MG/2.5 ML UDL PO SCH ×3 (11:40→21:34)
[2017-01-01] MEDS: buPROPion SR 150 MG TAB PO SCH (11:45)
[2017-01-01 11:47] LABS: ANION GAP 9 mEq/L (8-16); CALCIUM 6.9 mg/dL (8.5-10.4); CARBON DIOXIDE 17 mEq/l (22-31); CHLORIDE 110 mEq/L (97-110); CREATININE 0.7 mg/dL (0.6-1.0); GLOMERULAR FILTRATION RATE > 60; GLUCOSE 102 mg/dL (70-100); POTASSIUM 4.3 mEq/L (3.5-5.2); SODIUM 136 mEq/L (134-144)
[2017-01-01] MEDS: ACETAMINOPHEN 325 MG TAB PO PRN ×2 (14:41→21:49)
[2017-01-01 15:50] LABS: HEMATOCRIT 35.2 % (38.0-47.0); HEMOGLOBIN 11.7 g/dL (12.6-16.3)
--- NOTE | 2017-01-01 15:55 | GCON ---
[f rep st] CONSULTATION DATE OF CONSULTATION: 01/01/2017 REFERRING PHYSICIAN: Fam Washington MD PULMONARY/CRITICAL CARE CONSULTATION: REASON FOR REFERRAL: Evaluation and management of tachycardia and colitis. HISTORY: Ms George is a 21-year-old woman who was recently treated for bacterial vagin osis with Flagyl on December 15. She was then changed to oral clindamycin due to side effects attribu lina to the Flagyl. Her symptoms of bacterial vaginosis resolved, but then she started having diarrh ea with increased frequency. She had about 6 stools yesterday, and described them as watery with fo ul smell. She had poor oral intake for a day or so before coming in due to crampy abdominal pain an d nausea. She presented to the emergency department with these symptoms and was found to be febrile , hypotensive, and tachycardic. She was admitted to the ICU for colitis. She reports now that she is feeling a bit better with improved pain control and also with less nausea. She has been able to start to take some p.o. liquids. She is still having frequent watery bowel movements. PAST MEDICAL HISTORY: 1. History of recurrent bacterial vaginosis. 2. Asthma. 3. Anxiety and depression. MEDICATIONS: Include: Flonase, Wellbutrin, ProAir, Zoloft. ALLERGIES: Citalopram and metronidazole. 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 She lives independently in [place]. S he does not smoke and denies excessive alcohol. REVIEW OF SYSTEMS: A 10-point review of systems adds nothing to the history of present illness. PHYSICAL EXAMINATION: GENERAL: The patient is awake, alert, in no acute distress. VITAL SIGNS: B lood pressure is 87/40, with a heart rate of 117. VITAL SIGNS: She is currently afebrile, but had a temperature of 39.1 at admission 12 hours ago. Oxygen saturations are 95% on room air. HEENT: N ormocephalic and atraumatic. No icterus. NECK: No JVD. Trachea is midline. CHEST: Clear to aus cultation. CARDIAC: Regular tachycardia without murmur. ABDOMEN: Soft. There is diffuse mild te nderness. Bowel sounds are hyperactive. EXTREMITIES: No clubbing, cyanosis or edema. NEURO: The patient is awake, alert. She has no gross sensory or motor deficits. LABORATORY DATA: White blood count is 15.1. A chemistry group shows the carbon dioxide level of 17 , down from 21. Glucose is 102. Calcium is 6.9 with an INR 1.5. A blood gas shows a lactate of 1. 3. A CT scan of the abdomen shows left-sided descending and sigmoid colitis. Images reviewed. A C dif f test is positive. ASSESSMENT: 1. Clostridium difficile colitis. This is moderate to severe in severity with signs of systemic in flammatory response, including hypotension, tachycardia, fever now with an elevated white blood coun t. She has been started on vancomycin and has been given IV fluids, although she still remains some what tachycardic and hypotensive. An icon fluid challenge was done and she was nonresponsive. 2. Severe sepsis. As above, the patient has symptoms of hypotension, tachycardia, fever, elevated white blood count, and a known infectious source. However, her lactate at presentation was normal. However, her bicarb has fallen so far during her hospitalization. 3. Hypocalcemia. This was demonstrated on a serum calcium. RECOMMENDATIONS: 1. Fluid bolus despite the negative fluid challenge on NICOM. 2. Recheck a lactate. 3. Check an ionized calcium. /[id number]/MODL
[2017-01-01] MEDS ORDERED: NALOXONE HCL 0.4 MG/ML INJ IVP PRN (15:57)
[2017-01-01] MEDS ORDERED: HYDROmorphONE/DILAUDID 6 MG/30 ML PCA IV ONE (15:59)
[2017-01-01 16:00] LABS: BASE EXCESS -5.4 mEq/L (-2.5-2.5); BICARBONATE 18 mEq/L (22-26); IONIZED CALCIUM 1.07 MMOL/L (1.12-1.30); MEASURED OXYGEN SATURATION 95 % (92-95); PCO2 32 mmHg (34-38); PO2 79 mmHg (65-75); TCO2 19 mEq/L (23-27)
[2017-01-01 16:03] LABS: O2 CONCENTRATIION ROOM AIR % (0-100); P/F RATIO 0 RATIO
[2017-01-01 16:05] LABS: ANION GAP 9 mEq/L (8-16); CALCIUM 6.9 mg/dL (8.5-10.4); CARBON DIOXIDE 18 mEq/l (22-31); CHLORIDE 109 mEq/L (97-110); CREATININE 0.7 mg/dL (0.6-1.0); GLOMERULAR FILTRATION RATE > 60; GLUCOSE 94 mg/dL (70-100); POTASSIUM 3.5 mEq/L (3.5-5.2); SODIUM 136 mEq/L (134-144)
[2017-01-01] MEDS ORDERED: CALCIUM CHLORIDE 1 GM/10 ML INJ IV ONE (16:08)
[2017-01-01] MEDS: HYDROmorphONE/DILAUDID 6 MG/30 ML PCA IV PRN (16:10)
[2017-01-01] MEDS ORDERED: CALCIUM GLUCONATE 1 GM/50 ML IV ONE (16:45)
[2017-01-01 20:23] LABS: HEMATOCRIT 34.7 % (38.0-47.0); HEMOGLOBIN 11.7 g/dL (12.6-16.3)
[2017-01-02] MEDS: ACETAMINOPHEN 325 MG TAB PO PRN ×2 (01:28→20:13)
[2017-01-02] MEDS: HYDROmorphONE/DILAUDID 6 MG/30 ML PCA IV PRN (04:39)
[2017-01-02 06:17] LABS: ADD MORPH? NO; ADD SCAN? YES; ATYPICAL LYMPHOCYTE FLAG 0 (0-99); FRAGMENT RBC FLAG 0 (0-99); HEMATOCRIT 37.3 % (38.0-47.0); HEMOGLOBIN 12.4 g/dL (12.6-16.3); LIPEMIA HEMOLYSIS FLAG 80 (0-99); MEAN CELL HEMOGLOBIN 30.5 pg (27.9-34.1); MEAN CELL HEMOGLOBIN CONCENTR. 33.2 g/dL (32.4-36.7); MEAN CELL VOLUME 91.9 fL (81.5-99.8); MEAN PLATELET VOLUME 10.6 fL (8.7-11.7); PLATELET CLUMPS FLAG 0 (0-99); PLATELET COUNT 85 10^3/uL (150-400); RED BLOOD CELL COUNT 4.06 10^6/uL (4.18-5.33); RED CELL DISTRIBUTION WIDTH 11.8 % (11.5-15.2)
[2017-01-02 06:18] LABS: LEFT SHIFT FLG 160 (0-99)
[2017-01-02 06:36] LABS: ADD DIFF? YES; SCAN POSITIVE
[2017-01-02 06:38] LABS: PLATELET ESTIMATE DECREASED (ADEQ)
[2017-01-02 06:44] LABS: ALANINE AMINOTRANSFERASE 24 IU/L (9-52); ALBUMIN 2.4 g/dL (3.5-5.0); ALKALINE PHOSPHATASE 32 IU/L (38-126); ANION GAP 8 mEq/L (8-16); ASPARTATE AMINOTRANSFERASE 21 IU/L (14-46); BILIRUBIN,TOTAL 0.4 mg/dL (0.1-1.4); BILIRUBIN-CONJUGATED 0.2 mg/dL (0.0-0.5); BILIRUBIN-UNCONJUGATED 0.2 mg/dL (0.0-1.1); CALCIUM 7.8 mg/dL (8.5-10.4); CARBON DIOXIDE 19 mEq/l (22-31); CHLORIDE 107 mEq/L (97-110); CREATININE 0.7 mg/dL (0.6-1.0); GLOMERULAR FILTRATION RATE > 60; GLUCOSE 108 mg/dL (70-100); POTASSIUM 3.6 mEq/L (3.5-5.2); SODIUM 134 mEq/L (134-144); TOTAL PROTEIN 4.7 g/dL (6.3-8.2)
[2017-01-02] MEDS: VANCOMYCIN 125 MG/2.5 ML UDL PO SCH ×4 (07:06→20:08)
[2017-01-02] MEDS: NS W/ 20 KCl/L 1,000 ML IV SCH ×2 (07:53→20:07)
[2017-01-02] MEDS: SERTRALINE HCL 50 MG TAB PO SCH (09:43)
[2017-01-02] MEDS: buPROPion SR 150 MG TAB PO SCH (09:44)
[2017-01-02] MEDS: oxyCODONE IR 5 MG TAB PO PRN (11:06)
--- NOTE | 2017-01-02 11:08 | PDINTPN ---
Needle Bar Molder Progress Note Assessment/Plan: Assessment: C.diff colitis: Severe. Rebound tenderness on left, but has BS and having flatus /BMs. On PO Vancomycin. Sepsis: Improved, with better BP. HR down slightly but still high. Metabolic acidosis slightly improved. Anemia: Stable overnight. Stools no longer black. Plan: Add IV Flagyl per ID. Liquid diet as tolerated. Increase AUDIO/VIDEO TECHNICIAN dilaudid, start PO narcotic. OK to transfer to med-surg. 01/02/17 11:41 Subjective: Abdominal pain improved, but still quite severe. Less frequent BMs, less urgency. Poor appetite. Has cervical/occipital INMAN. Objective: Vital Signs Temp Pulse Resp BP Pulse Ox 37.2 C 108 H 20 107/67 97 01/02/17 08:00 01/02/17 09:00 01/02/17 09:00 01/02/17 09:00 01/02/17 09:00 Laboratory Results 01/02/17 06:00 01/02/17 06:00 01/01/17 01/02/17 01/03/17 05:59 05:59 05:59 Intake Total 4895 Output Total 150 Balance 4745 PT 18.6 SEC (12.0-15.0) H 01/01/17 07:45 INR 1.55 (0.83-1.16) H 01/01/17 07:45 Physical Exam - Physical Exam General Appearance: alert, mild distress EENT: photophobia Neck: full range of motion, normal inspection Respiratory: chest non-tender, lungs clear Cardiac/Chest: tachycardia, No edema Abdomen: normal bowel sounds, soft, No non-tender (rebound tenderness left) Skin: normal color, warm/dry Extremities: normal inspection Neuro/Psych: alert, motor weakness, sensory deficit, No normal mood/affect ( fatigued, frustrated, tearful) ICD10 Worksheet Patient Problems: Problems Problem Status Onset Abdominal pain Acute Fever Acute Appendicitis Acute
--- NOTE | 2017-01-02 12:06 | HOSPPROG ---
Hospitalist Progress Note Assessment/Plan: DIAGNOSES: -Acute severe sepsis -C difficile colitis Patient does have acute C difficile colitis. As remains tachycardic and requiring narcotic for pain, I feel she is still quite ill but she is having bowel function, does not renal insufficiency and her blood pressure remains good despite the tachycardia. her abdominal examination does have some distention but overall remains benign. I have reviewed her case in detail today with Dr. Curt Lebron and Mercedes Chong Also seen on multidisciplinary rounds PLANS: - continue IV fluid resuscitation -Continue vancomycin 250 mg 4 times daily -ID consult -Contact isolation -DVT prophylaxis SUBJECTIVE: still having a lot of abdominal cramping and watery stools though stools are less frequent today Feels lightheaded and dehydrated No shortness of breath No fever symptoms OBJECTIVE Vitals reviewed: remains tachycardic 105-117 at this point, has a good mean arterial pressure, less febrile today Meal Cooker, my review: sinus tachycardia Exam: alert oriented skin warm dry color ok no jaundice or mottling Good distal capillary refill resps not labored lungs clear BSs heart regular abd soft mildly distended, some diffuse tenderness without guarding or rebound , bowel sounds present limbs warm, no edema iv site ok laboratory data: Her C diff test is positive I reviewed her CT abdomen images and they do show diffuse colonic thickening l Objective: Vital Signs Temp Pulse Resp BP Pulse Ox 37.2 C 108 H 20 107/67 97 01/02/17 08:00 01/02/17 09:00 01/02/17 09:00 01/02/17 09:00 01/02/17 09:00 Laboratory Results 01/02/17 06:00 01/02/17 06:00 01/01/17 01/02/17 01/03/17 06:59 06:59 06:59 Intake Total 4895 Output Total 150 Balance 4745 PT 18.6 SEC (12.0-15.0) H 01/01/17 07:45 INR 1.55 (0.83-1.16) H 01/01/17 07:45 ICD10 Worksheet Patient Problems: Problems Problem Status Onset Abdominal pain Acute Fever Acute Appendicitis Acute
--- NOTE | 2017-01-02 12:17 | GCON ---
[f rep st] CONSULTATION INFECTIOUS DISEASE CONSULTATION DATE OF CONSULTATION: 01/02/2017 REFERRING PHYSICIAN: Fam Washington MD REASON FOR CONSULTATION: Sepsis secondary to C difficile. Query additional antibiotic management. HISTORY OF PRESENT ILLNESS: This is a 21-year-old healthy woman who presented to the emergency room on January 01 with abdominal pain, watery diarrhea, and fever. On presentation, she was found to be febrile to 39, hypotensive and tachycardic to 130. Workup was begun with a CT scan and a stool study, which subsequently demonstrated C difficile. Providers were suspicious of this etiology, as the patient reports approximately 2 weeks ago presenting to Urgent Care with crampy abdominal pain and was subsequently diagnosed with bacterial vaginosis. She was initially given p.o. Flagyl which she did not tolerate well , but then was changed to p.o. clindamycin which preceded the onset of the above symptoms. Her diarrhea was too frequent episodes to count. She was having incontinence due to urgency. It was black in nature, but she recently had Pepto. No bright red blood per rectum. She also had severe abdominal pain most prominent in the left lower quadrant. She felt a significant decreased p.o. intake greater than her baseline anorexia, which she relates to chronic therapy with SSRIs. Since admission, the patient has been given significant IV fluids and p.o. vancomycin, and she reports 50% improvement in abdominal pain and diarrhea since admission. She still is somewhat tearful regarding the persistent pain in the left lower quadrant. In addition, she describes headache most prominent in the back of her neck and over her eyes. She has some sore throat and nasal congestion, but she states this is likely due to lack of use of Flonase since admission to the hospital. PAST MEDICAL HISTORY: Recurrent bacterial vaginosis (negative GC chlamydia ), depression and asthma/seasonal allergies. PAST SURGICAL HISTORY: Appendectomy and wisdom teeth extraction. MEDICATIONS: Vancomycin 250 mg p.o. four times daily, Tylenol, albuterol, Wellbutrin 150 mg daily, Dilaudid as PAIN COORDINATOR, Narcan, Zofran, Phenergan and Zoloft 25 mg daily. ALLERGIES: To citalopram. 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 She is from [place]. No recent travel. Nonsmoker. Did not review sexual history due to patient's current feeling poorly. REVIEW OF SYSTEMS: A complete 10-point review of systems was performed and is negative, except as mentioned in the HPI. PHYSICAL EXAM: INITIAL VITAL SIGNS: Heart rate 130, blood pressure 90/50. Today, blood pressure 107/67, heart rate is 108. Initial temperature 39.1, today 37.2. GENERAL: This is a young woman lying in bed, in mild distress secondary to abdominal pain. HEENT: Pupils are reactive bilaterally. Extraocular muscles are intact. Oropharynx: She has black discoloration of her tongue due to Pepto-Bismol and dry mucous membranes. Dentition is good. NECK: Supple, without meningismus. NEUROLOGICAL: She was moving all 4 extremities equally. CARDIOVASCULAR: Tachycardic, regular rate. CHEST: Clear to auscultation bilaterally, except some cracked scattered crackles in the bases. ABDOMEN: Hyperactive bowel sounds. Diffuse discomfort to palpation with peritoneal signs in the left lower quadrant. EXTREMITIES: No clubbing, cyanosis, or edema. SKIN: No rash was noted. : No Gee. LABORATORY: White count 10.3 down from 15, hematocrit 37, platelets of 85, 69% neutrophils, 15% bands, 10% monocytes. Creatinine 0.7. AST 21, ALT 24. Albumin 2.4. Procalcitonin was 2.11. Beta HCG was negative. Urinalysis was negative. Blood cultures from 01/01/2017 are no growth to date. ASSESSMENT AND PLAN: This is a 21-year-old woman with minimal past medical history, who has had recurrent bacterial vaginosis and was recently treated with systemic clindamycin. She subsequently developed severe abdominal pain, watery diarrhea and was subsequently found to have Clostridium difficile. On presentation to the emergency room, the patient had evidence of severe Clostridium difficile with Sepsis reflected by hypotension, tachycardia, bandemia and subsequent thrombocytopenia. In addition, fairly severe inflammation of her sigmoid colon and descending colon on CT scan. She was admitted to the step-down unit, given aggressive IV fluids and started on p.o. vancomycin. Although vital signs and abdominal pain have improved patient continues to have tachycardia and severe abdominal pain c/w severe disease due to C.diff. Therefore, would add IV metronidazole 500mg IV q8hr for a day to two to help facilitate improvement, as the patient likely has some decreased bowel motility which may inhibit oral vancomycin delivery. Will continue to follow the patient on a daily basis while hospitalized and will arrange for followup for ongoing therapy of C difficile and management of recurrent bacterial vaginosis as an outpatient. Thank you for this consultation. We will continue to follow on a daily basis. /[id number]/MODL MTDD
[2017-01-02] MEDS: ONDANSETRON 4 MG/2 ML VIAL IVP PRN (16:29)
[2017-01-03] MEDS: oxyCODONE IR 5 MG TAB PO PRN ×3 (01:28→20:10)
[2017-01-03 05:10] LABS: ALBUMIN 2.3 g/dL (3.5-5.0); BILIRUBIN,TOTAL 0.2 mg/dL (0.1-1.4); BILIRUBIN-CONJUGATED 0.1 mg/dL (0.0-0.5); BILIRUBIN-UNCONJUGATED 0.1 mg/dL (0.0-1.1); TOTAL PROTEIN 4.4 g/dL (6.3-8.2)
[2017-01-03] MEDS: ONDANSETRON 4 MG/2 ML VIAL IVP PRN ×2 (05:23→08:52)
[2017-01-03] MEDS: VANCOMYCIN 125 MG/2.5 ML UDL PO SCH ×4 (06:04→20:11)
[2017-01-03] MEDS: buPROPion SR 150 MG TAB PO SCH (10:00)
[2017-01-03] MEDS: SERTRALINE HCL 50 MG TAB PO SCH (10:00)
[2017-01-03] MEDS: ACETAMINOPHEN 325 MG TAB PO PRN ×3 (10:00→21:41)
[2017-01-03] MEDS: NS W/ 20 KCl/L 1,000 ML IV SCH (10:14)
--- NOTE | 2017-01-03 11:06 | PCMIDPN ---
Assessment/Plan: Assessment: C diff colitis. Clinically greatly improved on oral vancomycin and IV metronidazole. She is wanting to decrease her pain medications. Her abdominal exam is remarkably better. Still with diarrhea but decreased in amount and frequency. Plan: 1. Continue oral vancomycin and IV Flagyl. 2. Transition from NEEDLE MAKER to oral pain medications. 3. Follow clinical course. 01/03/17 11:01 Subjective: Patient is feeling hot and clammy. No significant continuing abdominal pain. Still has diarrhea although lessened. Major complaint is headache. Objective: P.o. vancomycin # 2 IV metronidazole # 1 Vital Signs Temp Pulse Resp BP Pulse Ox 37.6 C 103 H 14 112/65 96 01/03/17 07:06 01/03/17 07:06 01/03/17 07:06 01/03/17 07:06 01/03/17 07:06 Laboratory Results 01/02/17 06:00 01/02/17 06:00 01/02/17 01/03/17 01/04/17 05:59 05:59 05:59 Intake Total 4895 4437.2 Output Total 150 200 Balance 4745 4437.2 -200 - Physical Exam General Appearance: WD/WN, alert, no apparent distress, non-toxic Respiratory: lungs clear, normal breath sounds, No respiratory distress Cardiac/Chest: regular rate, rhythm, tachycardia Extremities: non-tender, normal inspection Abdomen: soft, No non-tender (Mildly tender to deep palpation), No mass Skin: normal color, warm/dry, No rash Neuro/Psych: alert, normal mood/affect, oriented x 3 ICD10 Worksheet Patient Problems: Problems Problem Status Onset Abdominal pain Acute Fever Acute Appendicitis Acute
[2017-01-03] MEDS: KETOROLAC 30 MG/1 ML SDV IVP PRN ×3 (11:24→23:14)
--- NOTE | 2017-01-03 13:42 | HOSPPROG ---
Hospitalist Progress Note Assessment/Plan: * severe C diff colitis * Continue Flagyl and oral vancomycin * Advance diet as tolerated * Improving overall * headache * May be due to narcotics * Will add anti-inflammatory and try to reduce IV narcotics Subjective: Complaining of headache. Minimal abdominal pain. Diarrhea has improved Objective: Vital Signs Temp Pulse Resp BP Pulse Ox 37.2 C 88 18 111/67 97 01/03/17 11:15 01/03/17 11:15 01/03/17 11:15 01/03/17 11:15 01/03/17 11:15 Laboratory Results 01/02/17 06:00 01/02/17 06:00 01/02/17 01/03/17 01/04/17 05:59 05:59 05:59 Intake Total 4895 4437.2 Output Total 150 200 Balance 4745 4437.2 -200 PT 18.6 SEC (12.0-15.0) H 01/01/17 07:45 INR 1.55 (0.83-1.16) H 01/01/17 07:45 - Physical Exam Constitutional: no apparent distress, appears nourished, not in pain Eyes: anicteric sclera, EOMI Ears, Nose, Mouth, Throat: moist mucous membranes Cardiovascular: regular rate and rhythym Respiratory: no respiratory distress Gastrointestinal: normoactive bowel sounds, soft, non-tender abdomen, no palpable masses Skin: warm Neurologic: AAOx3 Psychiatric: interacting appropriately, not anxious, not encephalopathic, thought process linear ICD10 Worksheet Patient Problems: Problems Problem Status Onset Abdominal pain Acute Fever Acute Appendicitis Acute
[2017-01-03] MEDS: ONDANSETRON DISINTEGRATING 4 MG TAB PO PRN (21:27)
[2017-01-04] MEDS: NS W/ 20 KCl/L 1,000 ML IV SCH ×2 (01:44→12:25)
[2017-01-04] MEDS: ACETAMINOPHEN 325 MG TAB PO PRN (01:57)
[2017-01-04 05:32] LABS: % IMMATURE GRANULYOCYTES 0.7 % (0.0-1.1); ABSOLUTE IMMATURE GRANULOCYTES 0.03 10^3/uL (0.00-0.10); ADD DIFF? NO; ADD MORPH? NO; ADD SCAN? NO; ATYPICAL LYMPHOCYTE FLAG 30 (0-99); FRAGMENT RBC FLAG 0 (0-99); HEMATOCRIT 33.7 % (38.0-47.0); HEMOGLOBIN 11.5 g/dL (12.6-16.3); LEFT SHIFT FLG 40 (0-99); LIPEMIA HEMOLYSIS FLAG 90 (0-99); MEAN CELL HEMOGLOBIN 30.4 pg (27.9-34.1); MEAN CELL HEMOGLOBIN CONCENTR. 34.1 g/dL (32.4-36.7); MEAN CELL VOLUME 89.2 fL (81.5-99.8); MEAN PLATELET VOLUME 10.7 fL (8.7-11.7); PLATELET CLUMPS FLAG 0 (0-99); PLATELET COUNT 88 10^3/uL (150-400); RED BLOOD CELL COUNT 3.78 10^6/uL (4.18-5.33); RED CELL DISTRIBUTION WIDTH 11.6 % (11.5-15.2)
[2017-01-04 05:38] LABS: ANION GAP 9 mEq/L (8-16); CALCIUM 7.8 mg/dL (8.5-10.4); CARBON DIOXIDE 22 mEq/l (22-31); CHLORIDE 109 mEq/L (97-110); CREATININE 0.5 mg/dL (0.6-1.0); GLOMERULAR FILTRATION RATE > 60; GLUCOSE 90 mg/dL (70-100); POTASSIUM 3.7 mEq/L (3.5-5.2); SODIUM 140 mEq/L (134-144)
[2017-01-04] MEDS: VANCOMYCIN 125 MG/2.5 ML UDL PO SCH ×4 (06:04→20:28)
[2017-01-04] MEDS ORDERED: oxyCODONE IR 5 MG TAB PO PRN (09:15)
--- NOTE | 2017-01-04 09:37 | HOSPPROG ---
Hospitalist Progress Note Assessment/Plan: * severe C diff colitis * seems to be improving. will dc flagyl d/t possibly causing nausea and vomiting. would like to minimize medications since she seems sensitive * Advance diet as tolerated * headache * hasn't had caffiene for several days which may be cause, some migrainous components but will avoid adding new meds. decrease narcotics Subjective: nausea and vomiting yesterday. still with headache. dairrhea seems to be improving Objective: Vital Signs Temp Pulse Resp BP Pulse Ox 36.8 C 85 16 110/65 93 01/04/17 07:36 01/04/17 07:36 01/04/17 07:36 01/04/17 07:36 01/04/17 07:36 Laboratory Results 01/04/17 04:55 01/04/17 04:55 01/03/17 01/04/17 01/05/17 05:59 05:59 05:59 Intake Total 4437.2 Output Total 200 Balance 4437.2 -200 PT 18.6 SEC (12.0-15.0) H 01/01/17 07:45 INR 1.55 (0.83-1.16) H 01/01/17 07:45 - Physical Exam Constitutional: no apparent distress, appears nourished, not in pain Eyes: anicteric sclera, EOMI Respiratory: no respiratory distress Gastrointestinal: normoactive bowel sounds, soft, non-tender abdomen, no palpable masses Skin: warm Neurologic: AAOx3 Psychiatric: interacting appropriately, not anxious, not encephalopathic, thought process linear ICD10 Worksheet Patient Problems: Problems Problem Status Onset Abdominal pain Acute Clostridium difficile infection Acute ~12/31/16 Fever Acute Appendicitis Acute
[2017-01-04] MEDS: ONDANSETRON 4 MG/2 ML VIAL IVP PRN (10:03)
[2017-01-04] MEDS: buPROPion SR 150 MG TAB PO SCH (10:04)
[2017-01-04] MEDS: SERTRALINE HCL 50 MG TAB PO SCH ×2 (10:55→10:56)
--- NOTE | 2017-01-04 13:25 | PCMIDPN ---
Assessment/Plan: Assessment/Plan: 1. C. diff colitis: - Ct abd reviewed: diffuse thickening of descending colon/sigmoid - Previously on oral vanco and IV flagyl. flagyl stopped earlier today - stools improving so far. - labs improved. -temp curve improved -Plan for 14 days of vanco - care coordinated with hospitalist team. Meds vanco po Subjective: Afebrile. vomited yesterday, throat is sore today. less nausea today and no further vomiting. watery stools, 4 x yesterday, today so far only once. appetite down. denies sob. Objective: Vital Signs Temp Pulse Resp BP Pulse Ox 36.8 C 85 16 110/65 93 01/04/17 07:36 01/04/17 07:36 01/04/17 07:36 01/04/17 07:36 01/04/17 07:36 Laboratory Results 01/04/17 04:55 01/04/17 04:55 01/03/17 01/04/17 01/05/17 05:59 05:59 05:59 Intake Total 4437.2 Output Total 200 Balance 4437.2 -200 - Physical Exam General Appearance: alert, no apparent distress Respiratory: lungs clear Cardiac/Chest: regular rate, rhythm Extremities: No swelling Abdomen: normal bowel sounds, non-tender, soft, distended (mild) Skin: No erythema ICD10 Worksheet Patient Problems: Problems Problem Status Onset Abdominal pain Acute Clostridium difficile infection Acute ~12/31/16 Fever Acute Appendicitis Acute
[2017-01-04] MEDS: ONDANSETRON DISINTEGRATING 4 MG TAB PO PRN ×2 (16:01→20:33)
[2017-01-04] MEDS: KETOROLAC 30 MG/1 ML SDV IVP PRN (22:37)
[2017-01-04 23:12] VITALS: RESP 18
[2017-01-05] MEDS: NS W/ 20 KCl/L 1,000 ML IV SCH (01:30)
[2017-01-05] MEDS: VANCOMYCIN 125 MG/2.5 ML UDL PO SCH (06:22)
[2017-01-05] MEDS ORDERED: IBUPROFEN 600 MG TAB PO PRN (09:17)
[2017-01-05 09:23] VITALS: BP 120/87; PULSE 81; TEMP 98.4; O2SAT 93
[2017-01-05] MEDS: SERTRALINE HCL 50 MG TAB PO SCH (09:34)
[2017-01-05] MEDS: buPROPion SR 150 MG TAB PO SCH (09:34)
--- NOTE | 2017-01-05 11:16 | GDS ---
[f rep st] DISCHARGE SUMMARY DISCHARGE DIAGNOSIS: Clostridium difficile colitis. HISTORY: This is a 21-year-old female, who was recently diagnosed with bacterial vaginosis, was carlyle yu on both Flagyl and then clindamycin. She presented with diarrhea and a positive C diff on stool PCR. HOSPITAL COURSE: Patient was admitted and started on vancomycin. She was slow to improve but did e ventually get better. Diarrhea has improved. Her abdominal pain has resolved. Her white count has also normalized. She will follow up with Infectious Disease within a week. She will be discharged on oral vancomycin to complete a 14-day course. /[id number]/MODL
--- NOTE | 2017-01-05 11:34 | PCMIDPN ---
Assessment/Plan: Assessment/Plan: * Severe C difficile colitis with associated sepsis: Clinically improved with oral vancomycin and prior IV metronidazole. Still with some diarrhea although markedly decreased. Tolerating oral intake. Nausea now has resolved. Plan 14 days total of oral vancomycin. Will arrange for follow-up with Dr. Chong in our office next week (appointment date and time in discharge plan). * Thrombocytopenia: Likely associated with severe sepsis. Will repeat CBC at follow-up visit. 01/05/17 11:31 Subjective: Patient feels significantly improved. Nausea resolved. Some diarrhea this a.m. but significantly less. Still with some abdominal discomfort. Complains of pain with swallowing which she associates with recent vomiting. Objective: Vital Signs Temp Pulse Resp BP Pulse Ox 36.9 C 81 18 120/87 H 93 01/05/17 08:00 01/05/17 08:00 01/05/17 08:00 01/05/17 08:00 01/05/17 08:00 Laboratory Results 01/04/17 04:55 01/04/17 04:55 01/04/17 01/05/17 01/06/17 05:59 05:59 05:59 Intake Total 879 Output Total 200 Balance -200 879 Oral vancomycin # 4 - Physical Exam General Appearance: alert, no apparent distress EENT: No thrush, No dry mucous membranes Respiratory: lungs clear, No respiratory distress Cardiac/Chest: regular rate, rhythm Abdomen: tender (Mild diffuse tenderness without peritoneal signs) ICD10 Worksheet Patient Problems: Problems Problem Status Onset Abdominal pain Acute Clostridium difficile infection Acute ~12/31/16 Fever Acute Appendicitis Acute
== END 2017-01-05 12:02 | disposition home or self-care (01) | DRG 872 ==
LOC: F2N 01-01 06:15 → INTOOBSV 01-01 06:30 → OBSVTOIN 01-01 06:30 → F3E 01-03 15:25
PROVIDERS: ADMIT Hospitalist; ATTEND Internal Medicine
DX: A41.9 Sepsis, unspecified organism (principal); R65.20 Severe sepsis without septic shock; A04.7 Enterocolitis due to Clostridium difficile; E83.51 Hypocalcemia; D69.6 Thrombocytopenia, unspecified; F41.9 Anxiety disorder, unspecified; F32.9 Major depressive disorder, single episode, unspecified; J45.909 Unspecified asthma, uncomplicated
CPT/HCPCS: J0610; J1170; J1885; J2405; Q9967

== ENCOUNTER 2017-01-22 18:03 | Emergency (ER) | payer MEDICAID ==
[2017-01-22 18:08] VITALS: RESP 16; TEMP 98.2; O2SAT 98
[2017-01-22] MEDS ORDERED: NS 1,700 ML IV ONE (18:36)
--- NOTE | 2017-01-22 18:39 | EDPHY ---
H & P Stated Complaint: Recent HX of C-diff Time Seen by Provider: 01/22/17 18:22 HPI/ROS: CHIEF COMPLAINT: Abdominal cramping HISTORY OF PRESENT ILLNESS: The patient is a 21-year-old female who comes to the emergency department complaining of abdominal cramping for the last day and half. She was discharged from the hospital 2 weeks ago after being here with C difficile and sepsis. She was discharged on oral vancomycin which she completed 1 week ago. She has not had any fevers. She has slightly loose stool today nonbloody. No vomiting. No urinary or vaginal symptoms. She does have a history of appendectomy. REVIEW OF SYSTEMS: Constitutional: denies: chills, fever, recent illness, recent injury EENTM: denies: blurred vision, double vision, nose congestion Respiratory: denies: cough, shortness of breath Cardiac: denies: chest pain, irregular heart rate, lightheadedness, palpitations Gastrointestinal/Abdominal: See HPI, denies: nausea, vomiting, blood streaked stools Genitourinary: denies: dysuria, frequency, hematuria, pain Musculoskeletal: denies: joint pain, muscle pain Skin: denies: lesions, rash, jaundice, bruising Neurological: denies: headache, numbness, paresthesia, tingling, dizziness, weakness Hematologic/Lymphatic: denies: blood clots, easy bleeding, easy bruising Immunologic/allergic: denies: HIV/AIDS, transplant EXAM: GENERAL: Well-appearing, well-nourished and in no acute distress. HEAD: Atraumatic, normocephalic. EYES: Pupils equal round and reactive to light, extraocular movements intact, sclera anicteric, conjunctiva are normal. ENT: TMs normal, nares patent, oropharynx clear without exudates. Moist mucous membranes. NECK: Normal range of motion, supple without lymphadenopathy or JVD. LUNGS: Breath sounds clear to auscultation bilaterally and equal. No wheezes rales or rhonchi. HEART: Regular rate and rhythm without murmurs, rubs or gallops. ABDOMEN: Soft, nontender, normoactive bowel sounds. No guarding, no rebound. No masses appreciated. BACK: No CVA tenderness, no spinal tenderness, step-offs or deformities EXTREMITIES: Normal range of motion, no pitting or edema. No clubbing or cyanosis. NEUROLOGICAL: Cranial nerves II through XII grossly intact. Normal speech, normal gait. 5/5 strength, normal movement in all extremities, normal sensation PSYCH: Normal mood, normal affect. SKIN: Warm, dry, normal turgor, no visible rashes or lesions. Source: Patient Exam Limitations: No limitations - Personal History LMP (Females 10-55): Over 28 Days Ago Current Tetanus/Diphtheria Vaccine: Yes Current Tetanus Diphtheria and Acellular Pertussis (TDAP): Yes Tetanus Vaccine Date: < 10 years - Medical/Surgical History Hx Asthma: Yes Hx Chronic Respiratory Disease: No Hx Diabetes: No Hx Cardiac Disease: No Hx Renal Disease: No Hx Cirrhosis: No Hx Alcoholism: No Hx HIV/AIDS: No Hx Splenectomy or Spleen Trauma: No Other PMH: medical: anxiety, depression, chronic rhinitis, asthma. surgery: appendectomy, wisdom teeth extraction - Family History Significant Family History: No pertinent family hx - Social History Smoking Status: Never smoked Alcohol Use: Sober Drug Use: None Constitutional: Initial Vital Signs Temperature (C) 36.8 C 01/22/17 18:05 Heart Rate 108 H 01/22/17 18:05 Respiratory Rate 16 01/22/17 18:05 Blood Pressure 111/82 H 01/22/17 18:05 O2 Sat (%) 98 01/22/17 18:05 O2 Delivery Mode Room Air Allergies/Adverse Reactions: citalopram hydrobromide [From Celexa] Allergy (Verified 12/18/16 17:34) Home Medications: Medication Instructions Recorded Fluticasone Nasal [Flonase Nasal 2 sprays NASAL DAILY PRN 01/31/14 [place]] Albuterol Hfa Anes Only [Proair 1 puffs IH DAILY PRN 02/05/16 Hfa Icu (*)] buPROPion SR [Wellbutrin 150mg SR 150 mg PO DAILY 02/05/16 (*)] Sertraline HCl [Zoloft 25mg (*)] 25 mg PO DAILY 12/31/16 [place]/Supplements -Info Only 1 ea PO DAILY 01/01/17 Vancomycin [Vancocin Oral Liquid] 125 mg PO QID #40 udl 01/05/17 Medical Decision Making ED Course/Re-evaluation: The the patient has a benign abdomen. She is afebrile and has stable vital signs. I will recheck her lab work and observed. 8:20 p.m. the patient is feeling well. She is not having any abdominal pain or cramping. Her lab work is very reassuring. Her abdominal exam remains benign. She would like to go home. She has not yet provided a stool sample. She thinks that she could. I will have her do this before she leaves. She will follow up with Dr. Mercedes Chong as planned early next week. If she feels worse she will return here between now and then. Differential Diagnosis: Partial list of the Differential diagnosis considered include but were not limited to; gastritis, C difficile, ovarian cyst and although unlikely based on the history and physical exam, I also considered urinary tract infection, , diverticulitis, obstruction . I discussed these differential diagnoses and the plan with the patient as well as the usual and expected course. The patient understands that the diagnosis is provisional and that in medicine we are not always correct and that further workup is often warranted. Usual and customary warnings were given. All of the patient's questions were answered. The patient was instructed to return to the emergency department should the symptoms at all worsen or return, otherwise to followup with the physician as we discussed. - Data Points Laboratory Results: Laboratory Results 01/22/17 18:55 01/22/17 18:55 Microbiology Results: MICROBIOLOGY 01/22/17 18:55 Blood Blood Culture - Preliminary 01/22/17 19:20 Blood Blood Culture - Preliminary Medications Given: Discontinued Medications Sodium Chloride (Ns) 1,700 mls @ 3,400 mls/hr 30 ml/kg infuse over 30 min ( 1700 ml) IV EDNOW ONE PRN Reason: Protocol Stop: 01/22/17 19:05 Last Admin: 01/22/17 18:54 Dose: 1,700 mls Departure - Departure Disposition: Home, Routine, Self-Care Clinical Impression: Abdominal cramping Condition: Fair Instructions: Abdominal Pain (ED) Referrals: Blossom Martinez MD [Primary Care Provider] - As per Instructions Mercedes Chong MD [Medical Doctor] - As per Instructions
[2017-01-22 19:09] LABS: % IMMATURE GRANULYOCYTES 0.3 % (0.0-1.1); ABSOLUTE IMMATURE GRANULOCYTES 0.03 10^3/uL (0.00-0.10); ADD DIFF? NO; ADD MORPH? NO; ADD SCAN? NO; ATYPICAL LYMPHOCYTE FLAG 30 (0-99); FRAGMENT RBC FLAG 0 (0-99); HEMATOCRIT 40.2 % (38.0-47.0); HEMOGLOBIN 13.8 g/dL (12.6-16.3); LEFT SHIFT FLG 0 (0-99); LIPEMIA HEMOLYSIS FLAG 90 (0-99); MEAN CELL HEMOGLOBIN 30.3 pg (27.9-34.1); MEAN CELL HEMOGLOBIN CONCENTR. 34.3 g/dL (32.4-36.7); MEAN CELL VOLUME 88.4 fL (81.5-99.8); MEAN PLATELET VOLUME 10.5 fL (8.7-11.7); PLATELET CLUMPS FLAG 10 (0-99); PLATELET COUNT 172 10^3/uL (150-400); RED BLOOD CELL COUNT 4.55 10^6/uL (4.18-5.33); RED CELL DISTRIBUTION WIDTH 11.9 % (11.5-15.2)
[2017-01-22 19:18] LABS: INR 1.11 (0.83-1.16); PROTIME(PATIENT) 14.2 SEC (12.0-15.0)
[2017-01-22 19:19] LABS: APTT 29.2 SEC (23.0-38.0)
[2017-01-22 19:22] LABS: ANION GAP 8 mEq/L (8-16); BILIRUBIN,TOTAL 0.4 mg/dL (0.1-1.4); CALCIUM 9.4 mg/dL (8.5-10.4); CARBON DIOXIDE 23 mEq/l (22-31); CHLORIDE 105 mEq/L (97-110); CREATININE 0.7 mg/dL (0.6-1.0); GLOMERULAR FILTRATION RATE > 60; GLUCOSE 97 mg/dL (70-100); POTASSIUM 3.5 mEq/L (3.5-5.2); SODIUM 136 mEq/L (134-144)
[2017-01-22 20:42] VITALS: BP 113/69; PULSE 89
== END 2017-01-22 21:23 | disposition home or self-care (01) ==
PROC: 3E0337Z Introduction of Electrolytic and Water Balance Substance into Peripheral Vein, Percutaneous Approach (ICD-10-PCS; principal; 2017-01-22)
DX: R10.9 Unspecified abdominal pain (principal); J45.909 Unspecified asthma, uncomplicated; E86.9 Volume depletion, unspecified; Z90.89 Acquired absence of other organs